=== PATIENT | male | born 1980 | race Caucasian/White ===

== ENCOUNTER 2024-11-25 19:14 | Emergency (ER) | payer OTHER, SELFPAY ==
--- NOTE | ~2024-11-25 | XR_ITS ---
CLINICAL HISTORY: Swelling; pain 3 view right 4th digit Comparison: None Findings: Bones intact. No dislocations. No significant arthritic change. No erosions. No radiopaque foreign body. IMPRESSION: 1. No acute findings This document has been electronically signed by: Ronald Courtney MD on 11/25/2024 21:02:58
[2024-11-25 19:29] VITALS: BP 145/81; BP 178/96; PULSE 71; PULSE 88; RESP 16; TEMP 36.7; O2SAT 97; O2SAT 98; BMI 30.2
--- NOTE | 2024-11-25 19:53 | ED_ITS ---
HPI - Extremity Problem General Chief complaint: Extremity Injury, Upper Stated complaint: finger swollen after playing basketball Time Seen by Provider: 11/25/24 19:19 Source: patient and EMS Mode of arrival: EMS Limitations: no limitations History of Present Illness ED Provider: Marce Garcia NP HPI Narrative: Patient is a 44-year-old male who presents emergency department via EMS coming from [facility] for evaluation of injury to the right 4th digit endorsing having hit it during playing basketball yesterday associated pain and swelling. Denies prior known injury to this finger in the past. Related Data Allergies Allergy/AdvReac Type Severity Reaction Status Date / Time No Known Allergies Allergy Verified 11/25/24 19:31 Review of Systems Review of Systems: Yes all other systems are reviewed and are negative [facility] Past Medical History Attestation statement: The following information was validated with the patient. Source: old records reviewed Social History Social History Advance Directives: No Advance Directives Information Provided: No Do you have a plan to hurt others: No Plan Physical Exam Vital Signs: Vital Signs: Last Vital Signs Temp 98.1 F 11/25/24 19:29 Pulse 88 11/25/24 19:29 Resp 16 11/25/24 19:29 BP 145/81 H 11/25/24 19:29 Pulse Ox 97 11/25/24 19:29 O2 Del Method Room Air 11/25/24 19:29 BMI result Body Mass Index 30.2 Appearance: Alert.?Oriented to person, place and time. No acute distress.?Normal affect. CVS: Heart sounds normal. Normal heart rate and rhythm.? Pulses normal.?? Respiratory: No respiratory distress.? Lung sounds clear to auscultation bilaterally?? Skin: Skin warm and dry.? Normal skin color.? Extremities: No extremity edema.? Right 4th digit with mild erythema, minimally decreased AROM, pain primarily to the distal tip without obvious deformity Neuro: Moves all extremities spontaneously. Sensation intact bilaterally. Ambulates with normal steady gait. Course Reevaluation(s) Reevaluation #1: XR is without acute fracture dislocation. Suspect contusion of the finger. Reviewed conservative treatment. All questions answered. Patient states [facility] on their formulary therefore he has been without his he takes this due to chronic neck pain. I did review his A/C TECH and see evidence that this has been previously filled. He reports that he arrived to [facility] with one on and they did not require him to remove it. He is requesting a patch to be placed from the emergency department today which I feel is reasonable, discussed with the patient I can not guarantee they would not recommend removal of such. Time: 21:26 Medications Administered Discontinued Medications Generic Name Dose Route Start Last Admin Trade Name Parveen PRN Reason Stop Dose Admin Fentanyl 50 mcg 11/25/24 21:28 11/25/24 23:02 Fentanyl 50 Mcg Patch.[id number] TRANSDERMA 11/25/24 21:29 50 mcg ONCE ONE Administration Medical Decision Making Medical Decision Making [facility] Narrative: Patient is a 44-year-old male who presents to the emergency department via EMS for evaluation of traumatic right 4th digit pain as per HPI. Overall is without obvious deformity, lower suspicion for acute fracture dislocation will however obtain XR for confirmation. Declined ice or ibuprofen in the emergency department. No additional complaints at this time. Exam is otherwise benign. Differential Diagnosis Differential Diagnoses: The differential diagnosis associated with the presentation includes (See narrative above) Independent Interpretation I performed an independent interpretation of an: Plain X-Ray (No acute fracture) Radiology Impression Discussion of test interpretation with radiology: I have reviewed the radiologist's reading. Radiologist Impression: XR 3 view right 4th digit Comparison: None Findings: Bones intact. No dislocations. No significant arthritic change. No erosions. No radiopaque foreign body. IMPRESSION: 1. No acute findings Independent Historian Clinical information obtained from an independent historian. History obtained from or confirmed by: EMS External Record Review External record reviewed: Outpatient record Discharge Plan Discharge Clinical Impression: Contusion of finger of right hand Qualifiers: Encounter type: initial encounter Finger: ring finger Damage to nail status: without damage Qualified Code(s): S60.041A - Contusion of right ring finger without damage to nail, initial encounter Patient Disposition: [facility]fer [facility] Transfer Details: transfer back to [facility] Additional Instructions: You can take ibuprofen 200 mg, 3 tablets (600mg) every 6-8 hours as needed for pain, in addition to Tylenol 500 mg, 2 tablets (1,000mg) every 4-6 hours as needed for pain, but not to exceed 3 doses daily (3,000mg).? Apply ice sent 15 minutes 40 6 times daily. Chronically prescribed fentanyl 50mcg patch was ordered and placed on patient while in the emergency department. Print Language: Upper Sorbian
[2024-11-25] MEDS: fentaNYL 50 MCG PATCH.TD72 TRANSDERMA (23:02)
== END 2024-11-26 00:21 ==
PROVIDERS: Emergency Provider Emergency Medicine Emergency Medical Services
DX: S60.041A Contusion of right ring finger without damage to nail, initial encounter (principal); Y93.67 Activity, basketball; Y92.39 Other specified sports and athletic area as the place of occurrence of the external cause; Y99.8 Other external cause status
CPT/HCPCS: 73140; 99281; 99283

== ENCOUNTER → 2024-11-25 20:20 | Outpatient (BNV) | payer MEDICAID, SELFPAY | PROVIDERS: Emergency Provider Emergency Medicine Emergency Medical Services; Visit Provider Student in an Organized Health Care Education/Training Program | DX: M79.644 Pain in right finger(s) (principal) | CPT/HCPCS: 73140 ==